=== PATIENT | female | born 1990 | race Caucasian/White ===

== ENCOUNTER 2022-04-03 20:55 | Emergency (ER) | payer MEDICAID ==
[~2022-04-03] VITALS: Ht 167.6 cm; Wt 74.5 kg
[2022-04-03 21:01] VITALS: TEMP 97.6
[2022-04-03] MEDS ORDERED: LEXAPRO 5MG5 MG PO (21:06)
[2022-04-03] MEDS ORDERED: PROCARDIA10 MG PO (21:06)
[2022-04-03] MEDS ORDERED: BUSPAR5 MG PO (21:07)
[2022-04-03] MEDS ORDERED: KAPSPARGO SPRIN25 MG PO (21:07)
[2022-04-03 22:36] VITALS: BP 143/95; PULSE 69
== END 2022-04-03 22:37 | disposition home or self-care (01) ==
LOC: COL.ER 20:55
DX: F41.9 Anxiety disorder, unspecified (principal); Z91.14 Patient's other noncompliance with medication regimen; Z28.310 Unvaccinated for COVID-19